=== PATIENT | male | born 1950 | race Caucasian/White ===

== ENCOUNTER → 2017-08-05 | Outpatient (CLI) | payer MEDICARE, BC | END | disposition home or self-care (01) | LOC: CFH 09:14 | PROVIDERS: ATTEND Internal Medicine Cardiovascular Disease | DX: I08.0 Rheumatic disorders of both mitral and aortic valves (principal); I77.819 Aortic ectasia, unspecified site; I10 Essential (primary) hypertension | CPT/HCPCS: 93306 ==

== ENCOUNTER → 2018-05-11 | Outpatient (CLI) | payer MEDICARE, BC ==
[2018-05-11 11:30] LABS: MICROSCOPIC AUTO
[2018-05-11 11:35] LABS: CULTURE INDICATED? NO
[2018-05-11 11:38] LABS: BASOPHILS # (AUTO) 0.03 x10^3/uL (0-0.1); BASOPHILS % (AUTO) 1 % (0-1); EOSINOPHILS # (AUTO) 0.25 x10^3/uL (0-0.4); EOSINOPHILS % (AUTO) 5 % (1-7); LYMPHOCYTES # (AUTO) 1.23 x10^3/uL (1-3.4); LYMPHOCYTES % (AUTO) 22 % (22-44); MD NO; MEAN CORPUSCULAR HGB CONC 33.6 g/dL (33.2-36.2); MEAN CORPUSCULAR VOLUME 95.3 fL (81-97); MONOCYTES # (AUTO) 0.61 x10^3/uL (0.2-0.8); MONOCYTES % (AUTO) 11 % (2-9); NEUTROPHILS # (AUTO) 3.38 x10^3/uL (1.8-6.8); NEUTROPHILS % (AUTO) 62 % (42-75); PLATELET COUNT 199 x10^3/uL (130-400); RED CELL DISTRIBUTION WIDTH 13.8 % (9.4-14.8)
[2018-05-11 11:39] LABS: ALBUMIN 3.9 g/dL (3.4-5.0); ANION GAP 4 mmol/L (5-15); CHLORIDE 109 mmol/L (98-107)
[2018-05-11 12:04] LABS: ALANINE AMINOTRANSFERASE 29 U/L (12-78); ALKALINE PHOSPHATASE 84 U/L (45-117); BILIRUBIN,TOTAL 0.7 mg/dL (0.2-1.0); CALCIUM 8.8 mg/dL (8.5-10.1); CHOL/HDL RATIO 2.9; CHOLESTEROL, TOTAL 139 mg/dL (140-239); CREATININE 1.16 mg/dL (0.7-1.3); FOLATE LEVEL 17.5 ng/mL (3.1-17.5); HDL CHOL % 35 % (26-37); HDL CHOLESTEROL (DIRECT) 48 mg/dL (40-60); LDL CHOLESTEROL,CALCULATED 64 mg/dL (54-169); LDL/HDL RATIO 1.3 (0.5-3.0); TOTAL PROTEIN 7.2 g/dL (6.4-8.2); TRIGLYCERIDES 133 mg/dL (50-200); VLDL CHOLESTEROL 27 mg/dL (0-25)
[2018-05-11 12:25] LABS: HEMOGLOBIN A1C 5.8 % (4.2-6.3)
== END | disposition home or self-care (01) ==
LOC: CFH 08:39
PROVIDERS: ATTEND Nurse Practitioner Primary Care
DX: Z00.01 Encounter for general adult medical examination with abnormal findings (principal); I10 Essential (primary) hypertension; E03.9 Hypothyroidism, unspecified; E55.9 Vitamin D deficiency, unspecified; E78.1 Pure hyperglyceridemia; N40.1 Benign prostatic hyperplasia with lower urinary tract symptoms; F06.31 Mood disorder due to known physiological condition with depressive features; J06.0 Acute laryngopharyngitis; G47.30 Sleep apnea, unspecified; R11.0 Nausea; R00.1 Bradycardia, unspecified; R53.83 Other fatigue; Z79.899 Other long term (current) drug therapy
CPT/HCPCS: 36415; 80053; 80061; 80074; 81001; 82306; 82607; 82746; 83036; 84207; 84425; 84439; 84443; 84481; 85025; 86644; 86645; 86663; 86664; 86665; 86747

== ENCOUNTER → 2018-05-26 | Outpatient (CLI) | payer MEDICARE, BC | END | disposition home or self-care (01) | LOC: CFH 12:44 | PROVIDERS: ATTEND Nurse Practitioner Primary Care | DX: I10 Essential (primary) hypertension (principal); I35.1 Nonrheumatic aortic (valve) insufficiency; I37.1 Nonrheumatic pulmonary valve insufficiency; E78.5 Hyperlipidemia, unspecified; N40.1 Benign prostatic hyperplasia with lower urinary tract symptoms; E03.9 Hypothyroidism, unspecified; E55.9 Vitamin D deficiency, unspecified; E78.1 Pure hyperglyceridemia; F06.31 Mood disorder due to known physiological condition with depressive features; J06.0 Acute laryngopharyngitis; R11.0 Nausea; R00.1 Bradycardia, unspecified; R01.1 Cardiac murmur, unspecified; G47.30 Sleep apnea, unspecified; Z79.899 Other long term (current) drug therapy | CPT/HCPCS: 93306 ==

== ENCOUNTER → 2019-02-28 | Outpatient (CLI) | payer MEDICARE, BC | END | disposition home or self-care (01) | LOC: CFH 08:43 | PROVIDERS: ATTEND Nurse Practitioner Primary Care | DX: J98.4 Other disorders of lung (principal); I10 Essential (primary) hypertension; R05 Cough; J20.9 Acute bronchitis, unspecified; J98.11 Atelectasis | CPT/HCPCS: 71046 ==

== ENCOUNTER → 2019-09-27 | Outpatient (CLI) | payer MEDICARE, BC | END | disposition home or self-care (01) | LOC: CFH 13:33 | PROVIDERS: ATTEND Internal Medicine | DX: J40 Bronchitis, not specified as acute or chronic (principal); R05 Cough | CPT/HCPCS: 71046 ==

== ENCOUNTER → 2019-10-11 | Outpatient (CLI) | payer MEDICARE, BC ==
[~2019-10-11] MED LIST: OMNIPAQUE 350 MG/ML, 100ML BOTTLE ONE
== END | disposition home or self-care (01) ==
LOC: CFH 13:41
PROVIDERS: ATTEND Internal Medicine Cardiovascular Disease
DX: I71.2 Thoracic aortic aneurysm, without rupture (principal); I51.7 Cardiomegaly; K76.0 Fatty (change of) liver, not elsewhere classified; K76.89 Other specified diseases of liver; M47.814 Spondylosis without myelopathy or radiculopathy, thoracic region
CPT/HCPCS: 71275; Q9967

== ENCOUNTER 2019-12-26 14:27 | Emergency (ER) | payer MEDICARE, BC ==
[~2019-12-26] VITALS: Ht 175.3 cm; Wt 83.1 kg
[2019-12-26 15:22] LABS: BASOPHILS # (AUTO) 0.03 x10^3/uL (0-0.1); BASOPHILS % (AUTO) 0 % (0-1); EOSINOPHILS # (AUTO) 0.19 x10^3/uL (0-0.4); EOSINOPHILS % (AUTO) 3 % (1-7); LYMPHOCYTES # (AUTO) 1.43 x10^3/uL (1-3.4); LYMPHOCYTES % (AUTO) 18 % (22-44); MD NO; MEAN CORPUSCULAR HEMOGLOBIN 31.9 pg (27.5-34.5); MEAN CORPUSCULAR HGB CONC 33.3 g/dL (33.2-36.2); MEAN CORPUSCULAR VOLUME 95.7 fL (81-97); MEAN PLATELET VOLUME 7.5 fL (7.4-10.4); MONOCYTES # (AUTO) 1.03 x10^3/uL (0.2-0.8); MONOCYTES % (AUTO) 13 % (2-9); NEUTROPHILS # (AUTO) 5.14 x10^3/uL (1.8-6.8); NEUTROPHILS % (AUTO) 66 % (42-75); PLATELET COUNT 189 x10^3/uL (130-400); RED BLOOD COUNT 5.22 x10^6/uL (4.38-5.82)
[2019-12-26 15:29] LABS: ALANINE AMINOTRANSFERASE 27 U/L (12-78); ALBUMIN 3.5 g/dL (3.4-5.0); ANION GAP 4 mmol/L (5-15); CALCIUM 8.8 mg/dL (8.5-10.1); CHLORIDE 110 mmol/L (98-107); CREATININE 0.99 mg/dL (0.7-1.3)
[2019-12-26 15:33] LABS: ALKALINE PHOSPHATASE 82 U/L (45-117); BILIRUBIN,TOTAL 0.5 mg/dL (0.2-1.0); TOTAL PROTEIN 6.3 g/dL (6.4-8.2); TROPONIN I < 0.015 ng/mL (0.000-0.045)
[2019-12-26 16:21] LABS: MICROSCOPIC NOT IND
[2019-12-26 16:24] VITALS: BP 100/55
[2019-12-26 16:25] LABS: CULTURE INDICATED? NO
== END 2019-12-26 16:59 | disposition home or self-care (01) ==
LOC: ED 16:45
DX: R55 Syncope and collapse (principal); R51 Headache; R94.01 Abnormal electroencephalogram [EEG]
CPT/HCPCS: 36415; 70450; 80053; 81003; 84484; 85025; 93005; 99285

== ENCOUNTER 2020-04-10 09:56 | Outpatient (CLI) | payer MEDICARE, BC | END 2020-04-10 23:59 | disposition home or self-care (01) | LOC: CVU 09:56 | PROVIDERS: ATTEND Internal Medicine Cardiovascular Disease | DX: I08.0 Rheumatic disorders of both mitral and aortic valves (principal); I71.2 Thoracic aortic aneurysm, without rupture; R42 Dizziness and giddiness | CPT/HCPCS: 93306; 93356 ==

== ENCOUNTER → 2021-06-18 | Outpatient (CLI) | payer BC, MEDICARE | END | disposition home or self-care (01) | LOC: CVU 11:56 | PROVIDERS: ATTEND Internal Medicine | DX: I35.1 Nonrheumatic aortic (valve) insufficiency (principal); I11.9 Hypertensive heart disease without heart failure; I71.2 Thoracic aortic aneurysm, without rupture | CPT/HCPCS: 93306; 93356 ==

== ENCOUNTER 2021-06-20 17:47 | Emergency (ER) | payer MEDICARE ==
[~2021-06-20] VITALS: Ht 175.3 cm; Wt 87.2 kg
[2021-06-20 18:00] VITALS: BP 150/45
--- NOTE | 2021-06-20 18:45 | NUR ---
PT NOTES LLLEG SWELLING LONG CAR RIDE TEN DAYS AGO HX MITRAL VALVE REGERGE AND AORTIC ANURYSUM RECENT EXAM SHOWS NO ADVANCEMENT IN EITHER
--- NOTE | 2021-06-20 18:54 | NUR ---
Report from Pramod CLEMENTS
== END 2021-06-20 20:11 | disposition home or self-care (01) ==
LOC: ED 18:22
DX: R60.0 Localized edema (principal); M79.662 Pain in left lower leg; Z87.891 Personal history of nicotine dependence
CPT/HCPCS: 99284